=== PATIENT | male | born 1995 | race Two or more races ===

== ENCOUNTER 2021-04-09 16:16 | Emergency (ER) | payer OTHER ==
[2021-04-09 16:51] VITALS: BP 139/85
--- NOTE | 2021-04-09 17:02 | ED Physician Documentation ---
PD HPI URI - Stated complaint Stated Complaint: COUGHING, SORE THROAT - Chief complaint Chief Complaint: Resp - History obtained from History obtained from: Patient - History of Present Illness Timing - onset: Yesterday Timing duration: Days (2) Timing details: Gradual onset, Still present Associated symptoms: Nasal congestion, Rhinorrhea, Sore throat, Dry cough Contributing factors: Sick contact (contact with individual with covid) Improves by: Rest Similar symptoms before: Has not had sx before Recently seen: Not recently seen - Additional information Additional information: Previously well 25-year-old male has had a COVID exposure on Friday of this week he has begun to feel ill on Friday with a cough congestion and sore throat. He does not have shortness of breath. He is here today for a COVID test. Review of Systems Constitutional: reports: Myalgias, Fatigue. denies: Fever Eyes: denies: Decreased vision Ears: denies: Ear pain Nose: reports: Rhinorrhea / runny nose, Congestion Throat: reports: Sore throat Cardiac: denies: Chest pain / pressure, Palpitations Respiratory: reports: Cough. denies: Dyspnea GI: denies: Abdominal Pain, Nausea, Vomiting, Constipation, Diarrhea : denies: Dysuria, Frequency PD PAST MEDICAL HISTORY - Present Medications Home Medications: Ambulatory Orders Medication Instructions Recorded Confirmed No Known Home Medications 04/09/21 04/09/21 - Allergies Allergies/Adverse Reactions: Allergies Allergy/AdvReac Type Severity Reaction Status Date / Time oxycodone [From OxyContin] Allergy Rash Verified 04/09/21 16:48 PD ED PE NORMAL - Vitals Vital signs reviewed: Yes - General General: Alert and oriented X 3, No acute distress, Well developed/nourished - HEENT HEENT: Atraumatic, PERRL, EOMI, Pharynx benign, Other (Left TM is minimally inflamed right is clear) - Neck Neck: Supple, no meningeal sign, No bony TTP - Cardiac Cardiac: RRR, No murmur - Respiratory Respiratory: No respiratory distress, Clear bilaterally - Abdomen Abdomen: Soft, Non tender - Back Back: No CVA TTP, No spinal TTP - Derm Derm: Normal color, Warm and dry, No rash - Extremities Extremities: No deformity, No edema - Neuro Neuro: Alert and oriented X 3, veneer measurer 2-12 intact, No motor deficit, No sensory deficit, Normal speech Eye Opening: Spontaneous Motor: Obeys Commands Verbal: Oriented GCS Score: 15 - Psych Psych: Normal mood, Normal affect Results - Vitals Vitals: Vital Signs - 24 hr 04/09/21 16:49 Temperature 37.5 C Heart Rate 105 H Respiratory 19 Rate Blood Pressure 139/85 H O2 Saturation 99 Oxygen O2 Source Room air PD MEDICAL DECISION MAKING - ED course Complexity details: considered differential, d/w patient ED course: 25-year-old male reporting feeling ill after COVID exposure as a COVID swab obtained. He is fully immunized, he is not hypoxic. Departure - Departure Disposition: Home, Self Care Clinical Impression: Upper respiratory tract infection Qualifiers: URI type: unspecified viral URI Qualified Code(s): J06.9 - Acute upper respiratory infection, unspecified Condition: Stable Instructions: ED Viral Syndrome, COVID-19 [facility], Flu and Cold: Nutrition, Prevention and Treatment Tips Follow-Up: GRAEME Guerrero [Provider Group] Comments: Aravind, it is likely that you have COVID and your symptoms should remain mild. Extra fluids and Tylenol are always helpful with this and doses of Tylenol will need to be repeated. Your COVID test should be available in 1 to 3 days and you can obtain results over the patient portal.
== END 2021-04-09 17:09 | disposition home or self-care (01) ==
LOC: ED 16:16
DX: U07.1 COVID-19 (principal); J06.9 Acute upper respiratory infection, unspecified
CPT/HCPCS: 99282; 99283